=== PATIENT | male | born 1970 | race African-American/Black ===

== ENCOUNTER 2017-08-28 14:32 | Emergency (ER) | payer OTHER ==
[2017-08-28 15:36] LABS: HEMATOCRIT 45.2 % (42.0-54.0); HEMOGLOBIN 15.4 g/dL (13.5-17.5); MCH 29.6 pg (26.0-34.0); MCHC 34.1 g/dL (31.0-37.0); MCV 86.9 fL (80.0-100.0); MEAN PLATELET VOLUME 10.2 fL (7.4-10.4); PLATELET COUNT 241 10x3/uL (130-400); RDW 12.1 % (11.5-14.5)
[2017-08-28 15:50] LABS: ALBUMIN 3.9 g/dL (3.4-5.0); ANION GAP 11.8 mmol/L (8-16); BILIRUBIN - TOTAL 0.23 mg/dL (0.2-1.3); CALCIUM 10.2 mg/dL (8.5-10.1); CARBON DIOXIDE 27.3 mmol/L (21.0-32.0); CREATININE - SERUM 1.2 mg/dL (0.6-1.3); POTASSIUM - SERUM 4.1 mmol/L (3.5-5.1); PROTEIN - SERUM 7.8 g/dL (6.4-8.2)
[2017-08-28 16:00] LABS: APPEARANCE CLEAR (CLEAR); BILIRUBIN NEGATIVE (NEGATIVE); COLOR YELLOW (YELLOW); GLUCOSE NEGATIVE (NEGATIVE); KETONE NEGATIVE (NEGATIVE); NITRITE NEGATIVE (NEGATIVE); PROTEIN NEGATIVE (NEGATIVE); SPECIFIC GRAVITY 1.025 (1.005-1.020); UROBILINOGEN NORMAL (NORMAL)
[2017-08-28 16:39] LABS: EOSINOPHILS 1 % (0-7); LYMPHOCYTES 65 % (15-50); MONOCYTES 4 % (2-11); NEUTROPHILS 30 % (40-80)
[2017-08-28 16:40] LABS: PLATELET ESTIMATE NORMAL
== END 2017-08-28 19:25 | disposition home or self-care (01) ==
LOC: D.ER 14:32
PROVIDERS: Family Medicine
DX: R10.9 Unspecified abdominal pain (principal)